=== PATIENT | female | born 1965 | race Caucasian/White ===

== ENCOUNTER 2018-03-19 14:40 | Emergency (ER) | payer OTHER, SELFPAY ==
[2018-03-19 14:41] VITALS: BP 139/89; PULSE 75; RESP 14; TEMP 36.3; O2SAT 97; BMI 20.6
--- NOTE | 2018-03-19 15:11 | RAD_ITS ---
STUDY: X-RAY - RIGHT HAND, ATTENTION INDEX FINGER REASON FOR EXAM: Female, 52 years old. Pain and swelling following injury. TECHNIQUE: 3 view(s) of the finger were obtained. COMPARISON: None. FINDINGS: Normal metacarpal head. Normal metacarpophalangeal joint. Normal proximal phalanx. Normal middle phalanx. Normal distal phalanx. Normal proximal interphalangeal joint. Normal distal interphalangeal joint. Soft tissue swelling. RAD/Finger(s) Min 2 Views IMPRESSION: Soft tissue swelling. Electronically Signed: Ignacio Tao MD at 15:36 EDT Tel [phone], Service support ,
--- NOTE | 2018-03-19 15:17 | ED.DCSUM_ITS ---
- ER Visit Summary Date of Service: 03/19/18 Chief Complaint: Right index finger injury. History of Present Illness: The patient is a 52 F that is right-hand dominant. 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 It slipped and her right index finger got caught between the 2 drawers. The one weighed 25-35 pounds. She is complaining swelling and pain to her right index finger. No prior history. No prior surgery to the right hand. Physical Examination: Well-appearing middle-age female. Vital signs stable afebrile. Exam is unremarkable except right hand right index finger is swollen and tender. There is an abrasion on the dorsum between the MTP and PIP joints. She has full flexion extension. There are no lacerations that need to be repaired. There is mild swelling. There is no gross bony deformity. Distally the right index finger is neurovascularly intact with touch sensation and cap refill. Otherwise the right hand, wrist, forearm, elbow and upper arm are all unremarkable nontender with normal range of motion. Test Results: X-ray right index finger shows no acute abnormality on all 3 views. Read both by myself and the radiologist. Emergency Department Course and Treatment: Patient deferred any Motrin or Tylenol for pain. The wound to be cleaned and dressed. Treatment Plan: I went over the x-ray with the patient's. She will be d ischarged home. Ice and elevate. Motrin for pain. Corporate care as needed. Disposition: Discharge Impression: Right index finger abrasion and contusion Workers comp injury This note was generated with [employer] dictation software. It may contain incorrect words, spelling, and punctuation that were not noted in review of the chart prior to signing ED Disposition - Plan for ED Patient: Chief Complaint: Upper Extremity Injury Referrals: Rodrigue Etienne MD [Primary Care Provider] -
--- NOTE | 2018-03-19 15:46 | ED.DEP ---
ED Disposition - Plan for ED Patient: Disposition: Home or Assisted Living Chief Complaint: Upper Extremity Injury Instructions: ED Contusion Upper Ext Referrals: Corporate,Care [GROUP OF PHYSICIANS] - As Needed Additional Instructions: Ice and elevate. Watch for any signs of infection. Apply antibiotic ointment daily. Tylenol and/or Motrin for pain and swelling.
[2018-03-19 15:57] VITALS: PULSE 76; RESP 16
== END 2018-03-19 15:58 | disposition home or self-care (01) ==
PROVIDERS: Emergency Provider Emergency Medicine; Family Provider Family Medicine; PCP Family Medicine
DX: S60.410A Abrasion of right index finger, initial encounter (principal); S60.021A Contusion of right index finger without damage to nail, initial encounter; W23.0XXA Caught, crushed, jammed, or pinched between moving objects, initial encounter; Y93.9 Activity, unspecified; Y92.9 Unspecified place or not applicable
CPT/HCPCS: 73140; 99282

== ENCOUNTER → 2018-03-22 13:56 | Outpatient (CLI) | payer OTHER, SELFPAY ==
[2018-04-03 15:04] LABS: HPV HC, High Risk Negative (Negative)
[2018-04-03 15:05] LABS: HPV Reflexed? YES, CHARGE PATIENT
== END ==
PROVIDERS: Visit Provider Obstetrics & Gynecology
DX: Z12.4 Encounter for screening for malignant neoplasm of cervix (principal)
CPT/HCPCS: 87624; 88175; G0145

== ENCOUNTER → 2018-04-24 15:45 | Outpatient (CLI) | payer OTHER, SELFPAY ==
--- NOTE | 2018-04-24 15:46 | BI_ITS ---
MAMMOGRAPHY - BILATERAL SCREENING REASON FOR EXAM: Female, 52 years old. Routine annual screening examination. PERTINENT HISTORY: Grandmother with breast cancer. TECHNIQUE: Digital bilateral breast yaron (3D mammographic acquisition) in the CC and MLO projections. 2-D mediolateral oblique (MLO) and craniocaudad (CC) views of both breasts were obtained. CAD: Full Field Digital Mammography with Computer Added Detection was performed. COMPARISON: Comparison is made with prior study dated October 02, 2016 and June 05, 2014. FINDINGS: Breast Composition: The breasts are extremely dense, which lowers the sensitivity of mammography. There are no dominant masses or suspicious calcifications. No other significant abnormalities are identified. There has been no significant change since the prior study. BI/SCREENING MAMM (CAD), BILAT IMPRESSION: Stable bilateral screening mammogram. Yearly follow-up mammogram recommended. (A) ASSESSMENT CATEGORY: BIRADS Category 1: Negative. A letter regarding these results will be sent to the patient by the facility within 30 days. Approximately 10% of breast cancers are not detected by mammography. A normal mammogram should not delay biopsy of a clinically suspicious abnormality. [id number] Electronically Signed: Ignacio Tao MD at 9:07 EST Tel [phone], Service support ,
== END ==
PROVIDERS: PCP Family Medicine; Visit Provider Obstetrics & Gynecology
DX: Z12.31 Encounter for screening mammogram for malignant neoplasm of breast (principal)
CPT/HCPCS: 77063; 77067

== ENCOUNTER 2018-09-06 05:48 | Day surgery (SDC) | payer OTHER, SELFPAY ==
[2018-09-06] VITALS (8 sets, daily range): BP systolic 94–131; BP diastolic 55–73; PULSE 70–84; RESP 16–18; TEMP 36.1–36.9; O2SAT 98–100
--- NOTE | 2018-09-06 07:00 | COLBX_PTH ---
PATIENT: BEATRIZ ROCHA LOC: EN U#:[id number] AGE/SX: 52/F ROOM: RE09/06/[address]: Dr. Ace Farias MD : 1965 BED: DIS: 09/06/2018 SPEC #: [id number] RECD: 09/06/18 09:45 STATUS: TEDDY [place] #: [id number] ANGELO: 09/06/18 07:[address]: Ace Farias DEPT: SURGICAL PATHOLOGY RECD BY: Jose Ty ENTERED: 09/06/18 12:31 SP TYPE: COLON BX OT DR: Dr. Delvis Etienne MD Tissues: Sigmoid colon biopsy Procedures: Surgery Specimen Level IV HEADER OPERATION: Colonoscopy (MAC) PRE-OP DIAGNOSIS: Screening TISSUE SUBMITTED: Proximal sigmoid polyp MICROSCOPIC DIAGNOSIS Proximal sigmoid polyp, biopsy: Tubular adenoma. SJ:olga 09/09/18 MICROSCOPIC DESCRIPTION Slides are reviewed. GROSS DESCRIPTION Received in fixative is one container labeled with the patient's name and designated proximal sigmoid polyp. The specimen consists of one irregular fragment of light abarca soft tissue that measures 0.7 x 0.4 x 0.2 cm. The specimen is totally submitted in one cassette. / AM:olga 09/06/18 TC:1 CPT: 79748
--- NOTE | 2018-09-06 07:00 | PCM.HP.STD ---
Problem List (1) Screening for intestinal cancer Status: Acute History of Present Illness Date of Admission: 09/06/18 The patient is a 52 year old F presents for a screening colonoscopy. She has never had a previous one. She denies bright red blood per rectum or melena. Some intermittent constipation. Family history is notable that both parents had colon polyps. There is no family history of colon cancer. She otherwise enjoys good health. Past Medical History Allergies No Known Allergies Allergy (Verified 09/06/18 06:29) Home Medications: Ambulatory Orders Medication Instructions Recorded NK 09/03/18 Smoking Status: Never smoker Tobacco Use: Non-smoker Review of Systems Constitutional: Denies: Anorexia HEENT: Denies: Difficulty Swallowing Cardiovascular: Denies: Chest Pain Respiratory: Denies: Cough Gastrointestinal: Reports: Constipation. Denies: Abdominal Pain, Hematemesis, Melena, Vomiting Psychiatric: Denies: Anxiety Endocrine: Denies: Change in Body Habitus VTE Information - Inpt Only VTE Present on Admission: No Patient Problems: Active and Suspected Problems Screening for intestinal cancer (Acute) - Physical Exam General: Alert, Oriented x3, Cooperative, No apparent distress HEENT: Atraumatic Oral: Moist Mucosa Neck: Supple Lungs: Clear to auscultation, Normal air movement Cardiovascular: Regular rate, Regular Rhythm Abdomen: Bowel Sounds Present, Soft, Non Tender Extremities: No Calf Tenderness Psych/Mental Status: Normal Affect Vital Signs Temp Pulse Resp BP Pulse Ox 98.4 F 84 16 131/72 H 100 09/06/18 06:31 09/06/18 06:31 09/06/18 06:31 09/06/18 06:31 09/06/18 06:31 Oxygen Delivery Method Room Air Weight: 139 lb 8.842 oz Body Mass Index (BMI) 20.0 Assessment/Plan All Active Problems Screening for intestinal cancer (Acute) I am recommending to her a screening colonoscopy with possible biopsy or polypectomy as indicated. She is aware of the technique, benefits, risks, alternatives. She has had an opportunity to ask and have questions answered. She presents via our open access program. We will proceed as noted. Ace Farias M.D., F.A.C.S.
--- NOTE | 2018-09-06 07:30 | OP.ENDO_ITS ---
09/06/2018 Rodrigue Etienne [address] [place] [address] Re : Colonoscopy procedure for Moon Smith Dear Dr. Etienne This procedure was performed on Thursday, September 06, 2018. My impressions and recommendations are as follows: Impressions : - Non-thrombosed external hemorrhoids, non-thrombosed internal hemorrhoids and internal hemorrhoids that prolapse with straining, but spontaneously regress to the resting position (Grade II) found on digital rectal exam. - Diverticulosis in the sigmoid colon and in the descending colon. - One 11 mm polyp in the proximal sigmoid colon, removed with a hot snare. Resected and retrieved. Recommendations : - Telephone my office for pathology results in 1 week. - Discharge patient to home. - Resume previous diet. - Continue present medications. - Repeat colonoscopy in 3 years for surveillance. My findings are described in the full procedure note, which is enclosed. If I can be of further assistance, please feel free to contact me at Doctor phone number(s): Work: . Sincerely, Ace Farias MD 09/06/2018 7:30:18 AM This report has been signed electronically.
== END 2018-09-06 08:40 | disposition home or self-care (01) ==
LOC: EN 05:48 → AC 05:50
PROVIDERS: Family Provider Family Medicine; PCP Family Medicine; Referring Provider Surgery; Visit Provider Surgery
PROC: 0DJD8ZZ Inspection of Lower Intestinal Tract, Via Natural or Artificial Opening Endoscopic (ICD-10-PCS; CPT 45378; principal; 2018-09-06 06:55)
DX: Z12.11 Encounter for screening for malignant neoplasm of colon (principal); K59.00 Constipation, unspecified; K57.30 Diverticulosis of large intestine without perforation or abscess without bleeding; K64.1 Second degree hemorrhoids; K64.4 Residual hemorrhoidal skin tags; D12.5 Benign neoplasm of sigmoid colon
CPT/HCPCS: 45385; 88305; J7120

== ENCOUNTER → 2019-01-02 | Outpatient (CLI) | payer OTHER, SELFPAY ==
--- NOTE | 2019-01-02 10:19 | RAD_ITS ---
STUDY: X-RAY - LEFT HAND REASON FOR EXAM: Carpal tunnel pain. TECHNIQUE: 3 view(s) of the hand. COMPARISON: None. FINDINGS: Normal radiocarpal articulation. Normal distal radioulnar joint. Normal visualized carpal bones. Normal carpal articulations Normal carpometacarpal articulation of the thumb. Normal second through fifth carpometacarpal joints. Normal metacarpi. Normal metacarpophalangeal joint of the thumb. Normal interphalangeal joint of the thumb. Normal proximal and distal phalanges of the thumb. Normal metacarpophalangeal joints of the second through fifth fingers. Normal proximal and distal interphalangeal joints of the second through fifth fingers. Normal phalanges of the second through fifth fingers. The soft tissue structures are unremarkable. RAD/Hand Min 3 Views IMPRESSION: Normal x-ray examination of the left hand. Electronically Signed: Hugo Blank MD at 10:42 EDT Tel , Service support ,
--- NOTE | 2019-01-02 10:19 | RAD_ITS ---
STUDY: X-RAY - RIGHT HAND REASON FOR EXAM: Carpal tunnel pain. TECHNIQUE: 3 view(s) of the hand. COMPARISON: Radiographs 03/19/2018. FINDINGS: Normal radiocarpal articulation. Normal distal radioulnar joint. Normal visualized carpal bones. Normal carpal articulations Normal carpometacarpal articulation of the thumb. Normal second through fifth carpometacarpal joints. Normal metacarpi. Normal metacarpophalangeal joint of the thumb. Normal interphalangeal joint of the thumb. Normal proximal and distal phalanges of the thumb. Normal metacarpophalangeal joints of the second through fifth fingers. Normal proximal and distal interphalangeal joints of the second through fifth fingers. Normal phalanges of the second through fifth fingers. The soft tissue structures are unremarkable. RAD/Hand Min 3 Views IMPRESSION: Normal x-ray examination of the right hand. Electronically Signed: Hugo Blank MD at 10:44 EDT Tel , Service support ,
== END | disposition home or self-care (01) ==
LOC: HPRAD 10:19
PROVIDERS: Family Provider Family Medicine; PCP Family Medicine; Referring Provider Orthopaedic Surgery; Visit Provider Orthopaedic Surgery
DX: G56.03 Carpal tunnel syndrome, bilateral upper limbs (principal)
CPT/HCPCS: 73130

== ENCOUNTER 2019-01-22 08:32 | Day surgery (SDC) | payer OTHER, SELFPAY ==
--- NOTE | 2019-01-02 11:24 | HP_ITS ---
I have re-examined the patient. There are no clinical changes since date of exam. Intake Vital Signs 01/02/19 Body Mass Index (BMI) 20.0 12/11/18 Body Mass Index (BMI) 20.0 Intake Visit Reasons: Bilat wrists Allergies No Known Allergies Allergy (Verified 09/06/18 06:29) [facility] Social History (Updated 01/02/19 @ 11:24 by Afsaneh Vargas DO) Smoking Status: Never smoker HPI Bilat wrists: Surgical H&P: Yes Details: Parts of this documentation were recorded by a scribe, this documentation accurately reflects the service provided and the decisions made by me, Afsaneh Vargas DO 01/02/19 1005. BEATRIZ ROCHA is a 53 year old F here today for BL wrist carpal tunnel. Patient has EMG study completed about 3 years ago and at the time she was told she had BL moderate carpal tunnel syndrome. Has tried night bracing which was not effective. Patient was given a wrist injection of the right wrist she thinks and states that this injection was not effective. Patient is right handed and feels that both her wrist are about the same. Patient states her BL hands are numb at times. Does have weakness with holding objects. ROS Const Reports system reviewed and no additional complaints, except as docu Eyes Reports system reviewed and no additional complaints, except as docu ENT Reports system reviewed and no additional complaints, except as docu Card Reports system reviewed and no additional complaints, except as docu Resp Reports system reviewed and no additional complaints, except as docu GI Reports system reviewed and no additional complaints, except as docu Musc Reports as per HPI Skin/Breast Reports system reviewed and no additional complaints, except as docu Neuro Yes system reviewed and no additional complaints, except as docu Psych Reports system reviewed and no additional complaints, except as docu Endo Reports system reviewed and no additional complaints, except as docu Papo/Lymph Reports system reviewed and no additional complaints, except as docu Aller/Immun Reports system reviewed and no additional complaints, except as docu Ortho Exam Right Wrist/Hand Contralateral Normal: No A1 vannessa trigger: No Right Wrist: Yes Durken's Test Sensation: Median: D WRIST: thenar atrophy, left is greater Left Wrist/Hand Contralateral Normal: No A1 vannessa trigger: No Left Wrist: Yes Durken's Test Sensation: Median: D WRIST: thenar atrophy Assessment & Plan Problems 1. Bilateral carpal tunnel syndrome G56.03 Plan Reviewed the EMG from 2011 that showed mild carpal tunnel. Educated on the anatomy of the hand and wrist and the innervation of the nerves and how carpal tunnel progresses. Treatment options at the level of weakness is surgery. The goal of surgery is to stop the progression and the strength may not return fully. Can do the contralateral 6wks post op . Risks, benefits and alternatives of surgery reviewed including but no limited to risk of incisional hypersensitivity, pillar pain and continued symptomology, nerve or artery damage, finger and wrist stiffness. Post op restrictions reviewed. Follow up postop or sooner if pain, swelling, numbness or associated symptoms, or concerns develop. All questions answered. Patient in agreement of plan. Orders Orders: Hand Min 3 Views Today G56.01, G56.02 Hand Min 3 Views Today G56.01, G56.02 Hand Min 3 Views Today G56.01, G56.02 Coding Level of Care Code Off vis,est,level 4 Diagnoses Bilateral carpal tunnel syndrome G56.03 01/02/19 1125 <Electronically signed by Afsaneh mccullough DO> Date _ Afsaneh Vargas DO
[2019-01-22 08:48] VITALS: BP 139/72; PULSE 76; RESP 16; TEMP 36.8; O2SAT 100; BMI 21.7
[2019-01-22] MEDS: Cefazolin 2 GM in 0.9% Normal Saline 100 ML IV (11:21)
[2019-01-22] MEDS: Ropivacaine 0.5% 30 ML Vial (12:02)
[2019-01-22] MEDS: Triamcinolone Acetonide 40 MG/ML Vial (12:02)
--- NOTE | 2019-01-22 12:07 | PCM.DC.ORTHO ---
Discharge Diet: No Restrictions - leave dressing on until seen in postop clinic in 2 weeks, keep incision clean and dry, call with concerns Discharge Activity: May Not Drive May shower in (days): 1 Ice area for (Minutes): 20 - Every hour while awake. Weight Bearing Status: Weight bearing as tolerated Keep extremity elevated above heart level: Operative Extremity Call your doctor if your incision/area has: Continuous Slow Oozing, Sudden Increased Bleeding, Increased Pain/ Swelling, Increased Redness, Foul Smelling Discharge Call your doctor if you observe: Fever of 101 or Higher, Coldness, Increased Pain, Numbness or Tingling, Change in Color, Calf discomfort Allergies/Adverse Reactions: Allergies No Known Allergies Allergy (Verified 01/22/19 08:41) Medications to take at Discharge Acetaminophen/Codeine #3 [Tylenol #3 Tablet] 1 - 2 tablet PO Q6H PRN PRN #30 tablet 01/22/19 The following prescriptions were given: Acetaminophen/Codeine #3 [Tylenol #3 Tablet] 1 - 2 tablet PO Q6H PRN PRN #30 tablet PRN Reason: Pain Transmission Status: Sent to [facility] Primary Care Physician: Rodrigue Etienne MD [Primary Care Provider] - Test Results: Test results from this visit will be discussed in further detail at your follow-up appointment, if applicable. Please Follow Up With: Afsaneh Vargas, - [phone]
--- NOTE | 2019-01-22 12:08 | PCM.OPRPT ---
Report of Operation Date of Procedure: 01/22/19 Pre-Operative Diagnosis: bilateral carpal tunnel syndrome Post-Operative Diagnosis: same Surgery/Procedure Performed:: left carpal tunnel release, right carpal tunnel injection Type of Anesthesia:: Cesario Reid Anesthesiologist: Jaime Cottrell Estimated Blood Loss (mL): none Fluids Replaced: 800cc lr Description of Procedure: Preoperative note Patient is a { 53 year old female } patient with nerve conduction study confirming carpal tunnel syndrome. Patient failed conservative treatment for her carpal tunnel elected proceed with left carpal tunnel release right carpal tunnel injection. Risks benefits and alternatives surgery discussed with patient. Risks including but not limited to blood loss, blood clot, infection, neurovascular injury, failure procedure, loss of life and loss of limb. Patient is aware like proceed with left carpal tunnel release rt injection ct. Operative note Patient seen and examined preoperative holding area. Left hand was marked. History and physical and consent reviewed. Patient was brought to the operating room placed supine on the operating table. Sign in, anesthesia, antibiotics were administered. Left upper extremity was prepped and draped after Cesario block was initiated. All bony prominences well-padded SCDs placed on bilateral lower extremities. We marked out our incisions for our carpal tunnel release at the intersection of Milo's line in the fourth ray flexed. We extended about a centimeter and a half. Timeout was performed. We then checked ensure that the [place] block was working with pickups which it was. We then used a 15 blade to make a skin incision. We then dissected down tenotomy syllable of the transverse carpal ligament. We then used a new 15 blade cut through the transverse carpal ligament down to the level of the median nerve. We then further released the median nerve the combination of the 15 blade and tenotomies. The nerve was grayish in color and adherent to the transverse carpal ligament volarly. We released the transverse carpal ligament distally to the fat pad and then proximally under standard technique. We then palpated to ensure that we released all of the transverse carpal ligament which we did. We irrigated the incision with copious amounts of sterile saline. All bleeders were coagulated. The incision was closed with interrupted 4-0 nylon stitches. Tourniquet was deflated for total working time of 11 minutes. Patient tolerated procedure well there were no complications. Under sterile conditions, we then injected the right carpal tunnel using standard technique. Patient transferred to recovery room in stable condition. Postoperative note Hospital pharmacy has prescription Leave dressing clean dry and intact Follow-up in 2 weeks Call with concerns This note was generated with [employer] dictation software. It may contain incorrect words, spelling, and punctuation that were not noted in checking the note before signing.
[2019-01-22 12:14] VITALS: BP 139/72; BP 98/60; PULSE 63; RESP 14; TEMP 35.9; O2SAT 94
[2019-01-22 12:20] VITALS: BP 105/64; BP 139/72; PULSE 63; RESP 14; O2SAT 98
[2019-01-22 12:25] VITALS: BP 139/72; BP 98/61; PULSE 62; RESP 14; O2SAT 98
[2019-01-22 12:31] VITALS: BP 101/65; BP 139/72; PULSE 60; RESP 14; TEMP 37; O2SAT 98
[2019-01-22 12:53] VITALS: BP 139/72
== END 2019-01-22 13:45 | disposition home or self-care (01) ==
LOC: SDC 08:33 → AC 08:33
PROVIDERS: Family Provider Family Medicine; PCP Family Medicine; Referring Provider Orthopaedic Surgery; Visit Provider Orthopaedic Surgery
PROC: (CPT 64721; principal; 2019-01-22 09:55)
DX: G56.03 Carpal tunnel syndrome, bilateral upper limbs (principal)
CPT/HCPCS: 20526; 64721; J7120

== ENCOUNTER 2019-06-04 11:54 | Day surgery (SDC) | payer OTHER, SELFPAY ==
[2019-05-13 08:38] VITALS: BMI 21.7
--- NOTE | 2019-05-13 08:55 | HP_ITS ---
I have re-examined the patient. There are no clinical changes since date of exam. Intake Vital Signs 05/13/19 Body Mass Index (BMI) 21.7 05/13/19 Weight: 150 lb Intake Visit Reasons: Right wrist Is patient in pain?: Yes Allergies No Known Allergies Allergy (Verified 05/13/19 08:37) [facility] Social History (Updated 05/13/19 @ 08:55 by Afsaneh Vargas DO) Smoking Status: Never smoker HPI Right wrist: Surgical H&P: Yes Details: Parts of this documentation were recorded by a scribe, this documentation accurately reflects the service provided and the decisions made by me, Afsaneh Vargas DO 05/13/19 0835. BEATRIZ ROCHA is a 53 year old F here today for right wrist pain. Patient notes that she had numbness into her thumb, index and middle finger. She states that her symptoms are better since her injection on 01/22/19. Patient notes that she has weakness and is dropping items. Patient notes that her symptoms are worse when she is cold. She would like to discuss her surgery options. ROS Musc Reports muscle weakness, Reports numbness, Reports tingling Skin/Breast Reports system reviewed and no additional complaints, except as docu Neuro Yes system reviewed and no additional complaints, except as docu, Yes numbness, Yes tingling Ortho Exam Right Wrist/Hand Skin/Wound: Yes CDI Right Wrist: Yes Durken's Test Motor: EPL: 5, FDP-2: 4, 1st Dorsal Interosseous: 5, APB: 4 Sensation: Radial: I, Ulnar: I, Median: D No rales rhonchi wheezing, no upper abdominal pain, no audible bruits, Assessment & Plan Problems 1. Right carpal tunnel syndrome G56.01 Plan Risks, benefits and alternatives of surgery reviewed including but no limited to risk of incisional hypersensitivity, pillar pain and continued symptomology, nerve or artery damage, finger and wrist stiffness. Post op restrictions reviewed. Explained that the left hand zinging pain is normal and explained advancing tinels, it will slow over time. She should continue to do scar massage. She will continue to progress over a year. Follow up post op or sooner if pain, swelling, numbness or associated symptoms, or concerns develop. All questions answered. Patient in agreement of plan. Coding Level of Care Code Off vis,est,level 4 Diagnoses Right carpal tunnel syndrome G56.01 05/13/19 0855 <Electronically signed by Afsaneh mccullough DO> Date _ Afsaneh Vargas DO
[2019-06-04] VITALS (8 sets, daily range): BP systolic 105–113; BP diastolic 56–67; PULSE 67–77; RESP 15–16; TEMP 36.3–36.5; O2SAT 99–100; BMI 21.8
[2019-06-04] MEDS: Lactated Ringers 1,000 ML 100 ML IV (12:50)
[2019-06-04] MEDS: Cefazolin 2 GM in 0.9% Normal Saline 100 ML IV (15:41)
--- NOTE | 2019-06-04 15:53 | DCINST_ITS ---
Discharge Diet: No Restrictions - leave dressing intact, follow up in 2 weeks for removal of sutures, call with concerns Discharge Activity: May Not Drive May shower in (days): 1 Ice area for (Minutes): 20 - Every hour while awake. Weight Bearing Status: Weight bearing as tolerated Keep extremity elevated above heart level: Operative Extremity Call your doctor if your incision/area has: Continuous Slow Oozing, Sudden Increased Bleeding, Increased Pain/ Swelling, Increased Redness, Foul Smelling Discharge Call your doctor if you observe: Fever of 101 or Higher, Coldness, Increased Pain, Numbness or Tingling, Change in Color, Calf discomfort Allergies/Adverse Reactions: Allergies No Known Allergies Allergy (Verified 06/04/19 12:31) Medications to take at Discharge NK 05/28/19 Primary Care Physician: Rodrigue Etienne MD [Primary Care Provider] - Test Results: Test results from this visit will be discussed in further detail at your follow- up appointment, if applicable. Please Follow Up With: Afsaneh Vargas, - [phone]
--- NOTE | 2019-06-04 15:54 | PCM.OPRPT ---
Report of Operation Date of Procedure: 06/04/19 Pre-Operative Diagnosis: right carpal tunnel syndrome Post-Operative Diagnosis: same Surgery/Procedure Performed:: right ctr
[2019-06-04] MEDS: Mupirocin Ointment 22gm Tube 1 APPLIC (16:06)
== END 2019-06-04 17:42 | disposition home or self-care (01) ==
LOC: SDC 11:54 → AC 12:26
PROVIDERS: Family Provider Family Medicine; PCP Family Medicine; Referring Provider Orthopaedic Surgery; Visit Provider Orthopaedic Surgery
PROC: (CPT 64721; principal; 2019-06-04 13:20)
DX: G56.01 Carpal tunnel syndrome, right upper limb (principal); Z78.0 Asymptomatic menopausal state
CPT/HCPCS: 64721; J7120; J2405

== ENCOUNTER → 2020-09-21 | Outpatient (CLI) | payer OTHER, SELFPAY ==
[2019-06-19 10:48] VITALS: BMI 21.8
[2020-09-25 09:00] LABS: HPV APTIMA, High Risk Negative (Negative)
== END | disposition home or self-care (01) ==
LOC: LABSPEC 16:53
PROVIDERS: PCP Family Medicine; Visit Provider Student in an Organized Health Care Education/Training Program
DX: Z12.4 Encounter for screening for malignant neoplasm of cervix (principal)
CPT/HCPCS: 87624; 88175; G0145

== ENCOUNTER → 2020-10-11 | Outpatient (CLI) | payer OTHER, SELFPAY ==
[2019-06-19 10:48] VITALS: BMI 21.8
--- NOTE | 2020-10-11 10:15 | CER_PTH ---
PATIENT: BEATRIZ ROCHA LOC: GINGER U#:[id number] AGE/SX: 54/F ROOM: RE10/11/[address]: Dr. Danielle Moreno DO : 1965 BED: DIS: 10/11/2020 SPEC #: [id number] RECD: 10/11/20 11:53 STATUS: TEDDY REQ #: [id number] ANGELO: 10/11/20 10:[address]: Danielle Moreno DEPT: SURGICAL PATHOLOGY RECD BY: Yvette Sanchez ENTERED: 10/11/20 13:23 SP TYPE: CERV OTHR DR: Dr. Delvis Etienne MD Tissues: Uterine cervix, NOS Procedures: Surgery Specimen Level IV HEADER OPERATION: Removal cervical polyp PRE-OP DIAGNOSIS: Cervical polyp TISSUE SUBMITTED: Cervical polyp MICROSCOPIC DIAGNOSIS Cervical polyp, biopsy: Fragments of benign endocervical polyp with squamous metaplasia, inflamed. AM:olga 10/12/2020 MICROSCOPIC DESCRIPTION Slides are reviewed. GROSS DESCRIPTION Received in fixative is one container labeled with the patient's name and designated cervical polyp. The specimen consists of two pieces of abarca-pink soft tissue measuring in aggregate 0.7 x 0.7 x 0.2 cm. The entire specimen is submitted in one cassette. / SJ:rg 10/11/20 TC:1 CPT: 95098
== END | disposition home or self-care (01) ==
LOC: LABSPEC 10:54
PROVIDERS: PCP Family Medicine; Visit Provider Student in an Organized Health Care Education/Training Program
DX: N87.9 Dysplasia of cervix uteri, unspecified (principal)
CPT/HCPCS: 88305

== ENCOUNTER → 2021-05-11 08:02 | Outpatient (CLI) | payer OTHER, SELFPAY ==
[2021-05-11 09:25] LABS: Vitamin B12 663 pg/mL (211-911); Vitamin D,25 Hydroxy 33.3 ng/mL
[2021-05-11 10:02] LABS: Anion Gap 8 (5-15); BUN 14 mg/dL (7-18); BUN/Creat Ratio 17.8 RATIO (10-20); Calcium,Total 8.7 mg/dL (8.5-10.1); Chloride 104 mmol/L (98-107); Creatinine, Serum 0.79 mg/dL (0.55-1.02); EST Glomerular Filtration Rate 80 mL/min (>60); Est Glom Filt Rate - Afr Amer 97 mL/min (>60); Glucose 96 mg/dL (74-106); Iron 73 ug/dL (50-170); Magnesium 2.1 mg/dL (1.6-2.6); Potassium 3.7 mmol/L (3.5-5.1); Sodium Level 141 mmol/L (136-145); Thyroid Stim Hormone (TSH) 1.72 uIU/mL (0.358-3.74)
[2021-05-20 17:07] LABS: VITAMIN B6 31.9 ug/L (2.0-32.8)
== END ==
PROVIDERS: PCP Family Medicine; Referring Provider Family Medicine; Visit Provider Family Medicine
DX: R20.2 Paresthesia of skin (principal); R00.2 Palpitations
CPT/HCPCS: 36415; 80048; 82306; 82607; 82746; 83540; 83735; 84207; 84443

== ENCOUNTER 2021-09-01 16:01 | Outpatient (CLI) | payer OTHER, SELFPAY ==
--- NOTE | 2021-09-01 16:04 | BI_ITS ---
MAMMOGRAPHY - BILATERAL SCREENING 3-D TOMOSYNTHESIS REASON FOR EXAM: Female, 55 years old. SCREENING PERTINENT HISTORY: No significant family history. TECHNIQUE: 2-D mammograms and 3-D Tomosynthesis of the breast (s) were performed. CAD was performed. COMPARISON: 04/24/2018 FINDINGS: The breast composition is heterogeneously dense that can obscure small breast masses. Scattered benign calcifications are seen. No dense spiculated masses or suspicious microcalcifications are identified. No architectural distortion is identified. There is no skin thickening or retraction. There has been no significant change since the prior study. BI/SCRN MAMM (CAD)W/NEYMAR BILAT IMPRESSION: No mammographic signs of malignancy. Routine yearly mammograms recommended. ASSESSMENT CATEGORY: BIRADS Category 1: Negative. A letter regarding these results will be sent to the patient by the facility within 30 days. FOLLOW UP RECOMMENDATION: Yearly follow up mammogram recommended. (A) Approximately 10% of breast cancers are not detected by mammography. A normal mammogram should not delay biopsy of a clinically suspicious abnormality. Electronically Signed: Sincere Monroe MD at 17:12 EDT ,
== END 2021-09-01 23:59 | disposition home or self-care (01) ==
LOC: OPBI 16:01
PROVIDERS: PCP Family Medicine; Visit Provider Student in an Organized Health Care Education/Training Program
DX: Z12.31 Encounter for screening mammogram for malignant neoplasm of breast (principal)
CPT/HCPCS: 77063; 77067

== ENCOUNTER → 2021-10-28 | Outpatient (CLI) | payer OTHER, SELFPAY ==
[2021-10-28 10:35] LABS: Anion Gap 3 (5-15); BUN 13 mg/dL (7-18); BUN/Creat Ratio 16.1 RATIO (10-20); Calcium,Total 8.9 mg/dL (8.5-10.1); Chloride 107 mmol/L (98-107); Creatinine, Serum 0.81 mg/dL (0.55-1.02); EST Glomerular Filtration Rate 78 mL/min (>60); Est Glom Filt Rate - Afr Amer 94 mL/min (>60); Glucose 88 mg/dL (74-106); Magnesium 2.2 mg/dL (1.6-2.6); Potassium 3.7 mmol/L (3.5-5.1); Sodium Level 141 mmol/L (136-145); Thyroid Stim Hormone (TSH) 1.88 uIU/mL (0.358-3.74)
== END | disposition home or self-care (01) ==
LOC: LAB 09:48
PROVIDERS: PCP Family Medicine; Visit Provider Internal Medicine Cardiovascular Disease
DX: R00.2 Palpitations (principal)
CPT/HCPCS: 36415; 80048; 83735; 84443

== ENCOUNTER → 2021-11-25 | Outpatient (CLI) | payer OTHER, SELFPAY ==
--- NOTE | 2021-11-25 13:57 | ECHOD_ITS ---
Reason For Study: ARRYTHMIA Procedure This was a 2D Doppler, Color Flow transthoracic echocardiogram. Exam performed in department. Left Ventricle Normal LV size. Left ventricular systolic function is normal. The estimated ejection fraction is 65 %. Stage 1 diastolic dysfunction. No regional wall motion abnormalities noted. Right Ventricle Normal RV size. Normal systolic function. Atria Normal left atrium. Normal right atrium. Mitral Valve Normal mitral valve. Tricuspid Valve Normal tricuspid valve. Mild tricuspid valve insufficiency. Pulmonary artery systolic pressure is 30 mmHg. Aortic Valve Normal aortic valve. Trisinus/trileaflet aortic valve. Pulmonic Valve Normal pulmonic valve. Great Vessels Normal aortic root. The pulmonary artery is normal size. Normal inferior vena cava. Pericardium/Pleural No pericardial effusion. MMode/2D Measurements & Calculations LVIDd: 5.1 cm IVSd: 1.0 cm Ao root diam: 3.0 cm LVIDs: 3.0 cm LVPWd: 0.88 cm RVDd: 3.0 cm FS: 42.1 % LAV(MOD-bp): 60.7 ml LVAd ap4: 29.3 cm2 SV(MOD-sp4): 53.8 ml LAV(MOD-bp) Indexed: 32.0 ml/m2 LVLd ap4: 7.2 cm LAV(MOD-sp2): 60.9 ml EDV(MOD-sp4): 97.6 ml LAV(MOD-sp4): 59.5 ml EDV(sp4-el): 101.6 ml LVAs ap4: 17.9 cm2 LVLs ap4: 6.3 cm ESV(MOD-sp4): 43.8 ml ESV(sp4-el): 43.3 ml EF(MOD-sp4): 55.2 % EF(sp4-el): 57.4 % SV(sp4-el): 58.3 ml LA A4 area: 19.5 cm2 LA dimension(2D): 3.8 cm RA A4 area: 18.3 cm2 Doppler Measurements & Calculations MV E max collins: 85.7 cm/sec Lat Peak E' Collins: 13.9 cm/sec Med Peak E' Collins: 12.4 cm/sec MV A max collins: 89.5 cm/sec E/E' lat: 6.2 E/E' med: 6.9 MV E/A: 0.96 Ao V2 max: 115.6 cm/sec LV V1 max: 94.4 cm/sec TR max collins: 263.4 cm/sec Ao max P.3 mmHg LV V1 max P.6 mmHg TR max P.7 mmHg ECHO/Echo Complete Interpretation Summary Normal LV size. Left ventricular systolic function is normal. The estimated ejection fraction is 65 %. Stage 1 diastolic dysfunction. Pulmonary artery systolic pressure is 30 mmHg. Ordering Physician: Josafat Jolley Referring Physician: Josafat Jolley Performed By: Kim Lam RCS
== END | disposition home or self-care (01) ==
LOC: CVS 13:56
PROVIDERS: PCP Family Medicine; Referring Provider Internal Medicine Cardiovascular Disease; Visit Provider Internal Medicine Cardiovascular Disease
DX: R00.2 Palpitations (principal)
CPT/HCPCS: 93306

== ENCOUNTER → 2023-03-03 | Outpatient (CLI) | payer OTHER, SELFPAY | END | disposition home or self-care (01) | PROVIDERS: PCP Internal Medicine; Visit Provider Physician Assistant Medical | DX: R50.9 Fever, unspecified (principal); J02.9 Acute pharyngitis, unspecified; R51.9 Headache, unspecified | CPT/HCPCS: 87635; 87804; 87807 ==

== ENCOUNTER 2023-04-14 15:34 | Emergency (ER) | payer OTHER, SELFPAY ==
[2023-04-14 15:35] VITALS: BP 155/74; PULSE 81; RESP 16; TEMP 36.3; O2SAT 100; BMI 23.1
--- NOTE | 2023-04-14 15:45 | EDS_ITS ---
HPI History of Present Illness Chief Complaint: Wound Detail of Chief Complaint: Wound to left ankle Informant: patient Narrative Narrative: Patient presents to the emergency department with complaint of a wound to her left ankle. Patient states that her dogs leash/rope got wrapped around her ankle and abraded it 3 days ago. Since that time she is noticed increased redness and swelling. Patient has been using Neosporin to the area as well as hydrogen peroxide. She denies fevers or chills or sweats. No history of MRSA. PFSH [facility] Medical History (Updated 04/14/23 @ 15:[address] Daniela Arcos, DO) Chronic neck pain Elevated blood pressure reading Encounter to establish care Hx of carpal tunnel syndrome Hx of gallstones Hx of seasonal allergies Need for shingles vaccine Preventative health intermediate Medications loratadine 10 mg tablet 10 mg PO DAILY PRN 03/20/22 [History Last Taken Unknown] psyllium seed (sugar) oral powder (Metamucil (sugar) oral powder) 1 tbsp PO DAILY 04/09/23 [History Last Taken Unknown] cephalexin 500 mg capsule 500 mg PO Q6 #40 CAPSULES 04/14/23 [Rx Last Taken Unknown] Allergy/AdvReac Type Severity Reaction Status Date / Time No Known Allergies Allergy Verified 04/14/23 15:37 Family History Sister Diabetes Mother Thyroid disorder Hypothyroidism Arthritis Cancer Ovarian Cancer CVA (cerebral vascular accident) Father Lung cancer Grandmother Breast cancer Surgical History History of carpal tunnel surgery History of cholecystectomy Hx of tonsillectomy Social History household members: spouse housing: house current occupational status: employed current occupation: [employer] sexually active: Yes Smoking Status: Never smoker alcohol intake: current alcohol intake frequency: holidays/special occasions only substance use type: does not use what type of physical activity do you participate in: none seatbelt use: always do you feel safe at home: Yes ROS ROS ED Review of Systems ROS Unobtainable: other Constitutional Constitutional ED: Reports lethargy; Denies chills, fever(s), sweats or weight loss Eyes Eyes: Denies blurry vision, change in vision or diplopia ENT ENT ED: Denies rhinorrhea or sore throat Cardiovascular Cardiovascular: Denies chest pain, orthopnea or racing heartbeat Respiratory/Chest Respiratory/Chest: Denies cough, dyspnea, dyspnea on exertion, orthopnea or sputum Gastrointestinal Gastrointestinal: Denies abdominal pain, diarrhea, nausea or vomiting Genitourinary Genitourinary ED: Denies dysuria, hematuria or urinary frequency Musculoskeletal Musculoskeletal: Denies arthralgias, back pain, myalgias or neck pain Integumentary Reports other Details: Redness and swelling to left ankle ; Denies abscess, Abrasions or rash Neurologic Neurologic: Denies headache(s) or weakness Psychiatric Psychiatric: Denies anxiety, depression or suicidal thoughts Endocrine Endocrinology: Denies polydipsia, polyphagia or polyuria Hematologic/Lymphatic Hematologic/Lymphatic: Denies easy bleeding, easy bruising or lymphadenopathy Allergic/Immunologic Allergic/Immunologic ED: Denies mouth swelling, tongue swelling or urticaria EXAM Physical Exam Const Vital Signs: 04/14/23 15:35 Temperature 97.4 F L Temperature Source Temporal Pulse Rate 81 Respiratory Rate 16 Blood Pressure 155/74 H Blood Pressure Mean 101 Pulse Ox 100 Oxygen Delivery Method Room Air Positive well nourished and well developed General Appearance ED: well developed and NAD HEENT Reports TM's clear and moist mucous membranes normocephalic and atraumatic; Negative for trauma or tenderness Tympanic Membrane ED: Yes TM's clear Eyes PERRL and EOMs intact bilaterally General Eye ED: Negative for pale conjunctiva or scleral icterus Neck no lymphadenopathy, supple and no JVD General: Negative for tenderness Chest Wall inspection of chest normal and palpation of chest normal Chest: Negative for tenderness Resp normal respiratory effort and clear to auscultation bilaterally Effort and Inspection: Negative for respiratory distress or pain with movement Auscultation: Negative for rhonchi, wheezes or diminished lung sounds Cardio regular rate, regular rhythm, S1 normal heart sound, S2 normal heart sound and no murmurs Peripheral Pulses: pulses 2+ throughout GI normal to inspection, nondistended, normoactive bowel sounds, soft to palpation, non-tender, non-distended and no masses Back/Spine no CVA tenderness and no thoracic nor lumbar tenderness Extremity Extremity Narrative: Left ankle-patient has superficial abrasions noted x3 about the left ankle. There is surrounding erythema. There is mild soft tissue swelling diffusely. Neurovascular intact distally. General Extremety ED: Negative for edema General Extremity: Negative for edema Neuro oriented x3, CN's II-XII intact bilaterally, no sensory deficits noted and gait normal Sensorium / Orientation: awake, alert, oriented to person, oriented to place and oriented to time Motor Exam: strength 5/5 throughout and strength abnormal Psych mental status grossly normal Skin no rashes or lesions noted and no wounds MDM MDM MDM Narrative Medical decision making narrative: Patient with superficial abrasions about the left ankle that appear to be becoming cellulitic. Patient will be started on Keflex and given first dose in the emergency department. Clinically she looks well. Advised to follow-up with primary care physician within next 3 to 5 days for wound check. Advised to return if increasing pain, redness, swelling, or condition worsening way. She is advised to discontinue the peroxide and Neosporin. Discharge Plan Triage Chief Complaint: Wound ED Provider: Daniela Arcos Dx/Rx/DC Orders Clinical Impression: Cellulitis, Abrasion Instructions: ED Abrasion, ED Cellulitis Prescriptions: New cephalexin [cephalexin] 500 mg capsule 500 mg PO Q6 Qty: 40 0RF No Action loratadine 10 mg tablet 10 mg PO DAILY PRN Metamucil (sugar) Powder 1 tbsp PO DAILY Primary Care Provider: Jamison Ye Referrals: Jamison Ye MD [Primary Care Provider] - 3-5 Days Disposition Disposition: Home, Self Care
[2023-04-14] MEDS: Cephalexin 250 MG Capsule 500 MG PO (15:57)
[2023-04-14] MEDS: Diphth,Pertuss(Acell),Tet Vac 0.5 ML Vial IM (16:04)
== END 2023-04-14 16:21 | disposition home or self-care (01) ==
LOC: ED 15:54
PROVIDERS: Emergency Provider Emergency Medicine; PCP Internal Medicine; Visit Provider Emergency Medicine
DX: S90.512A Abrasion, left ankle, initial encounter (principal); L03.116 Cellulitis of left lower limb; Z90.49 Acquired absence of other specified parts of digestive tract; X58.XXXA Exposure to other specified factors, initial encounter; Z23 Encounter for immunization
CPT/HCPCS: 90471; 90715; 99282

== ENCOUNTER → 2023-05-03 | Outpatient (CLI) | payer OTHER, SELFPAY ==
--- NOTE | 2023-05-03 12:44 | RAD_ITS ---
STUDY: X-RAY - CERVICAL SPINE REASON FOR EXAM: Female, 57 years old. Chronic Neck Pain TECHNIQUE: 3 view(s) of the cervical spine were obtained. COMPARISON: None FINDINGS: Normal anterior atlantoaxial articulation. Normal odontoid process. Normal cervical lordosis. Normal vertebral bodies and endplates. Normal disc space heights. Minor posterior spurring at C5-6 Normal visualized intervertebral neuroforamina. The soft tissue structures are unremarkable. RAD/Cerv Spine 2 or 3 Views IMPRESSION: Mild spondylosis at C5-6. Otherwise normal cervical spine Electronically Signed: Justice James MD at 22:53 EST ,
--- NOTE | 2023-05-03 14:06 | BI_ITS ---
MAMMOGRAPHY - BILATERAL SCREENING REASON FOR EXAM: Female, 57 years old. Routine annual screening examination. PERTINENT HISTORY: Grandmother with breast cancer. Left breast aspiration. TECHNIQUE: Digital bilateral breast neymar (3D mammographic acquisition) in the CC and MLO projections. 2-D mediolateral oblique (MLO) and craniocaudad (CC) views of both breasts were obtained. CAD: Full Field Digital Mammography with Computer Added Detection was performed. COMPARISON: Comparison is made with prior study dated September 01, 2021 and April 24, 2018. FINDINGS: Breast Composition: The breasts are heterogeneously dense, which may obscure small masses. There are no dominant masses or suspicious calcifications. No other significant abnormalities are identified. There has been no significant change since the prior study. BI/SCRN MAMM (CAD)W/NEYMAR BILAT IMPRESSION: Stable bilateral screening mammogram. Yearly follow-up mammogram recommended. (A) ASSESSMENT CATEGORY: BIRADS Category 1: Negative. A letter regarding these results will be sent to the patient by the facility within 30 days. Approximately 10% of breast cancers are not detected by mammography. A normal mammogram should not delay biopsy of a clinically suspicious abnormality. [id number] Electronically Signed: Ignacio Tao MD at 14:50 EST ,
--- NOTE | 2023-05-03 14:09 | BD_ITS ---
STUDY: DUAL ENERGY X-RAY ABSORPTIOMETRY / DXA REASON FOR EXAM: Female, 57 years old. Post menopausal TECHNIQUE: Bone Mineral Density (BMD) measurements of lumbar spine and bilateral hips were obtained. COMPARISON: None. FINDINGS: Lumbar Spine (L1-L4): g/cm2 (0.901) / T-score (-1.3) / Z-score (-0.1) Findings are suggestive of osteopenia with a low fracture risk. Left Femur Total: g/cm2 (0.936) / T-score (0.0) / Z-score (0.8) Left Femoral Neck: g/cm2 (0.902) / T-score (0.5) / Z-score (1.6) Right Femur Total: g/cm2 (0.908) / T-score (-0.3) / Z-score (0.5) Right Femoral Neck: g/cm2 (0.823) / T-score (-0.2) / Z-score (0.9) BD/Dexa Bone Density Study IMPRESSION: The patient is considered osteopenic as outlined below according to World Preet Organization (WHO) criteria with a low fracture risk. Reference Information: The T-score is the number of standard deviations above or below the standard which is normal for young adults at their peak bone mineral density. The World Health Organization (WHO) interprets the T-scores as follows: Above -1 Normal bone density Between -1 and -2.5 Osteopenia Equal to / or below -2.5 Osteoporosis As a practical clinical guideline, osteopenia may be graded as follows: Mild -1 through -1.5 Moderate -1.6 through -2.0 Severe -2.1 through -2.4 The Z-score is the number of standard deviations above or below age-matched controls. A Z-score of less than -1.5 would be considered abnormal. References: 1. NIH Osteoporosis and Related Bone Diseases www osteo.org 2. International Society for Clinical Densitometry www iscd.org 3. National Osteoporosis Foundation www nof.org Electronically Signed: Ignacio Tao MD at 8:55 EST ,
== END | disposition home or self-care (01) ==
LOC: OPBD 12:42
PROVIDERS: PCP Internal Medicine; Referring Provider Internal Medicine; Visit Provider Internal Medicine
DX: Z12.31 Encounter for screening mammogram for malignant neoplasm of breast (principal); Z78.0 Asymptomatic menopausal state; M54.2 Cervicalgia; G89.29 Other chronic pain
CPT/HCPCS: 72040; 77063; 77067; 77080

== ENCOUNTER 2023-08-02 07:42 | Day surgery (SDC) | payer OTHER, SELFPAY ==
[2023-08-02 08:05] VITALS: BP 137/78; PULSE 91; RESP 16; TEMP 36.6; O2SAT 100; BMI 23.0
[2023-08-02] MEDS: Lactated Ringers 1,000 ML 15 ML IV (08:20)
--- NOTE | 2023-08-02 08:40 | HP.PCM_ITS ---
HPI - General General Date of Admission: 08/02/23 Date of Service: 08/02/23 Chief Complaint: Surveillance colonoscopy HPI Narrative BEATRIZ ROCHA, is a 57-year-old arrives here for screening colonoscopy. She had a colonoscopy approximately 5 years ago and was, have adenomatous polyp. She comes in for surveillance colonoscopy. She has been doing well without any chest pain, shortness of breath, nausea vomiting or diarrhea. All other 16 r eview systems negative except for positive mentioned HPI PFSH Medical History (Updated 07/27/23 @ 10:52 by Josy Armas) Alcohol use Cardiology follow-up encounter Chronic neck pain Diverticulosis Elevated blood pressure reading Encounter to establish care History of adenomatous polyp of colon History of echocardiogram Hx of carpal tunnel syndrome Hx of gallstones Hx of seasonal allergies Leg cramps Need for shingles vaccine Post-menopausal Preventative health care Wears glasses Home Medications loratadine 10 mg tablet 10 mg PO DAILY PRN allergy symptoms 03/20/22 [History Last Taken Unknown] psyllium seed (sugar) oral powder (Metamucil (sugar) oral powder) 1 tbsp PO DAILY 04/09/23 [History Last Taken Unknown] multivitamin 1 tab PO DAILY 07/16/23 [History Last Taken Unknown] Allergy/AdvReac Type Severity Reaction Status Date / Time No Known Allergies Allergy Verified 07/27/23 10:44 Family History (Updated 07/16/23 @ 15:23 by Carolyne Odell) Sister Diabetes Mother Thyroid disorder Hypothyroidism Arthritis Cancer Ovarian Cancer CVA (cerebral vascular accident) Colon polyps Father Lung cancer Colon polyps Grandmother Breast cancer Surgical History (Updated 07/27/23 @ 10:52 by Josy Armas) History of carpal tunnel surgery History of cholecystectomy Hx of colonoscopy with polypectomy Hx of tonsillectomy Social History household members: spouse housing: house current occupational status: employed current occupation: [employer] [place] sexually active: Yes Smoking Status: Never smoker alcohol intake: current alcohol intake frequency: holidays/special occasions only substance use type: does not use what type of physical activity do you participate in: none seatbelt use: always do you feel safe at home: Yes Vital Signs Vital Signs Vital Signs: 08/02/23 08:05 08/02/23 08:05 Temperature 97.8 F Temperature Source Temporal Pulse Rate 91 Respiratory Rate 16 Respiratory Pattern Normal Blood Pressure 137/78 H Blood Pressure Mean 97 Blood Pressure Source Monitor Blood Pressure Position Sitting Blood Pressure Location Left Arm Pulse Ox 100 Oxygen Delivery Method Room Air Weight Weight: 160 lb 4.417 oz Body Mass Index (BMI) 23.0 Physical Exam Const alert General Appearance: cooperative Orientation / Consciousness: oriented to person HEENT hearing grossly normal bilaterally Head and Scalp: normal to inspection Face and Sinus: face symmetric Nose: external nose normal Mouth: oral and palatal mucosa normal Eyes conjunctivae normal General Eye: normal appearance of both eyes Neck full ROM General: normal visual inspection Lymph Lymphatic: no lymphadenopathy noted Chest inspection of chest normal and palpation of chest normal Chest: symmetrical chest wall rise Resp normal respiratory effort Effort and Inspection: able to speak in complete sentences Cardio regular rate GI non-distended Percussion: normal to percussion Rectal Exam: deferred Neuro Speech: speech normal Gait (Neuro): normal gait Assessment & Plan Assessment/Plan (1) Encounter for screening for malignant neoplasm of colon: PLAN: She was explained, risk, benefits including not withstanding bleeding, infection, sepsis, perforation, need for emergent surgery and . She will have an ASA of 3.
[2023-08-02 09:10] VITALS: BP 137/78; BP 93/51; PULSE 68; RESP 16; TEMP 36; O2SAT 99
--- NOTE | 2023-08-02 09:11 | OP.CCLET_ITS ---
08/02/2023 Jamison Ye MD [address] [place] [address] [place] [address] Re : Colonoscopy procedure for Moon Smith Dear Dr. Ye This procedure was performed on July. My impressions and recommendations are as follows: Impressions : - Diverticulosis in the recto-sigmoid colon and in the sigmoid colon. - The examination was otherwise normal on direct and retroflexion views. - No specimens collected. Recommendations : - Discharge patient to home. - Resume previous diet. - Continue present medications. - Repeat colonoscopy in 5 years for surveillance. My findings are described in the full procedure note, which is enclosed. If I can be of further assistance, please feel free to contact me at . Sincerely, Vinicius Friend, 08/02/2023 9:10:52 AM This report has been signed electronically.
--- NOTE | 2023-08-02 09:11 | OP.COLON_ITS ---
Patient Name: Moon Smith Procedure Date: 08/02/2023 8:28 AM Date of : 1965 Age: 57 Procedure: Colonoscopy Indications: Screening for colorectal malignant neoplasm Providers: Vinicius Choe DO Medicines: Monitored Anesthesia Care Patient Profile: This is a 57 year old female. Refer to note in patient chart for documentation of history and physical. Last Colonoscopy: several years ago. Complications: No immediate complications. Procedure: Pre-Anesthesia Assessment: - Prior to the procedure, a History and Physical was performed, and patient medications and allergies were reviewed. The risks and benefits of the procedure and the sedation options and risks were discussed with the patient. All questions were answered and informed consent was obtained. Patient identification and proposed procedure were verified by the physician in the pre-procedure area. Mental Status Examination: alert and oriented. Airway Examination: normal oropharyngeal airway and neck mobility. Respiratory Examination: clear to auscultation. CV Examination: normal. Prophylactic Antibiotics: The patient does not require prophylactic antibiotics. Prior Anticoagulants: The patient has taken no anticoagulant or antiplatelet agents. ASA Grade Assessment: II - A patient with mild systemic disease. After reviewing the risks and benefits, the patient was deemed in satisfactory condition to undergo the procedure. The anesthesia plan was to use monitored anesthesia care (MAC). Immediately prior to administration of medications, the patient was re-assessed for adequacy to receive sedatives. The heart rate, respiratory rate, oxygen saturations, blood pressure, adequacy of pulmonary ventilation, and response to care were monitored throughout the procedure. The physical status of the patient was re-assessed after the procedure. After I obtained informed consent, the scope was passed under direct vision. Throughout the procedure, the patient's blood pressure, pulse, and oxygen saturations were monitored continuously. The Colonoscope was introduced through the anus and advanced to the cecum, identified by appendiceal orifice and ileocecal valve. The colonoscopy was performed without difficulty. The patient tolerated the procedure well. The quality of the bowel preparation was good. The terminal ileum, ileocecal valve, appendiceal orifice, and rectum were photographed. Scope In: 8:49:23 AM Scope Withdrawal Time 0 hours 10 minutes 47 seconds Scope Out: 9:06:05 AM Total Procedure Duration Time 0 hours 16 minutes 42 seconds Findings: The perianal and digital rectal examinations were normal. Multiple small and large-mouthed diverticula were found in the recto-sigmoid colon and sigmoid colon. The exam was otherwise without abnormality on direct and retroflexion views. Impression: - Diverticulosis in the recto-sigmoid colon and in the sigmoid colon. - The examination was otherwise normal on direct and retroflexion views. - No specimens collected. Recommendation: - Discharge patient to home. - Resume previous diet. - Continue present medications. - Repeat colonoscopy in 5 years for surveillance. Procedure Code(s): --- Professional --- G0121, Colorectal cancer screening; colonoscopy on individual not meeting criteria for high risk CPT copyright 2021 [employer]. All rights reserved. The codes documented in this report are preliminary and upon procurement cost coordinator review may be revised to meet current compliance requirements. Vinicius Choe DO 08/02/2023 9:10:52 AM This report has been signed electronically. Number of Addenda: 0 Note Initiated On: 08/02/2023 8:28 AM
[2023-08-02 09:15] VITALS: BP 100/52; BP 137/78; PULSE 71; RESP 16; O2SAT 99
[2023-08-02 09:20] VITALS: BP 105/53; BP 137/78; PULSE 68; RESP 16; TEMP 35.9; O2SAT 99
[2023-08-02 09:45] VITALS: BP 137/78
== END 2023-08-02 10:01 | disposition home or self-care (01) ==
LOC: EN 07:43 → AC 07:46
PROVIDERS: PCP Internal Medicine; Referring Provider Internal Medicine; Visit Provider Internal Medicine Gastroenterology
PROC: 0DJD8ZZ Inspection of Lower Intestinal Tract, Via Natural or Artificial Opening Endoscopic (ICD-10-PCS; CPT 45378; principal; 2023-08-02 08:55)
DX: Z12.11 Encounter for screening for malignant neoplasm of colon (principal); K57.30 Diverticulosis of large intestine without perforation or abscess without bleeding; Z80.41 Family history of malignant neoplasm of ovary; Z80.3 Family history of malignant neoplasm of breast
CPT/HCPCS: G0121; J7120; J2405

== ENCOUNTER 2024-09-25 11:16 | Outpatient (CLI) | payer OTHER, SELFPAY ==
[2024-09-25 12:35] LABS: Vitamin D,25 Hydroxy 45.1 ng/mL (30-100)
== END 2024-09-25 23:59 | disposition home or self-care (01) ==
LOC: LAB 11:18
PROVIDERS: PCP Internal Medicine; Referring Provider Physician Assistant; Visit Provider Physician Assistant
DX: R68.89 Other general symptoms and signs (principal)
CPT/HCPCS: 82306; 84443

== ENCOUNTER → 2025-04-14 | Outpatient (CLI) | payer OTHER, SELFPAY | END | disposition home or self-care (01) | LOC: LAB 04-15 09:51 | PROVIDERS: PCP Internal Medicine; Referring Provider Internal Medicine; Visit Provider Internal Medicine | DX: R73.9 Hyperglycemia, unspecified (principal) | CPT/HCPCS: 83036 ==

== ENCOUNTER → 2025-05-04 | Outpatient (CLI) | payer OTHER, SELFPAY ==
--- NOTE | 2025-05-04 08:15 | BI_ITS ---
EXAM: SCRN MAMM (CAD)W/NEYMAR BILAT DATE: 05/04/2025 CLINICAL HISTORY: F, Age 59 y/o , SCREENING FOR BREAST CANCER TECHNIQUE: Procedure Code: [id number] Modality: MG Procedure: SCRN MAMM (CAD)W/NEYMAR BILAT COMPARISON: Prior exam(s) dated 05/03/2023 and 09/01/2021. FINDINGS: TISSUE DENSITY: The breasts are heterogeneously dense, which may obscure small masses. Bilateral Breast Mammographic Findings: No significant masses, calcifications or other abnormalities are identified. Benign vascular calcifications and round microcalcifications are seen in both breasts. BI/SCRN MAMM (CAD)W/NEYMAR BILAT IMPRESSION: OVERALL FINAL ASSESSMENT BI-RADS 2: BENIGN RECOMMENDATION: Routine annual follow-up in 1 Year Additional Recommendation none A letter with findings and recommendations will be mailed to the patient. Reading Location: [id number]
== END | disposition home or self-care (01) ==
PROVIDERS: PCP Internal Medicine; Referring Provider Nurse Practitioner Women's Health; Visit Provider Nurse Practitioner Women's Health
DX: Z12.31 Encounter for screening mammogram for malignant neoplasm of breast (principal)
CPT/HCPCS: 77063; 77067